=== PATIENT | female | born 1950 | race Two or more races ===

== ENCOUNTER 2019-07-18 14:27 | Outpatient (CLI) | payer MEDICARE, OTHER ==
--- NOTE | 2019-07-20 01:34 | XRAY Report ---
Reason: ACUTE L CALCANEAL PAIN SINCE 04/2019 Procedure Date: 07/18/2019 Accession Number: [id number] / [id number] Procedure: XR - Calcaneus LT CPT Code: Final Report FULL RESULT: EXAM: LEFT CALCANEOUS RADIOGRAPHY EXAM DATE: 07/18/2019 02:43 PM. CLINICAL HISTORY: ACUTE L CALCANEAL PAIN SINCE 04/2019. COMPARISON: None. TECHNIQUE: 2 views. FINDINGS: Bones and joints: Sclerosis at the medial facet of the subtalar joint with an accessory anterolateral facet. The posterior subtalar facet is intact. The calcaneus is otherwise normal. Hypertrophic bone changes at the medial midfoot in the region of the navicular. Soft Tissues: Normal. No soft tissue swelling. IMPRESSION: Accessory anterolateral facet at the subtalar joint, a possible pain generator. Hypertrophic bone changes at the medial midfoot in the region of the navicular. An oblique view of the foot may be useful for further evaluation. [facility]
== END 2019-07-18 14:28 | disposition home or self-care (01) ==
LOC: DI 14:27
PROVIDERS: ATTEND Podiatrist
DX: M89.372 Hypertrophy of bone, left ankle and foot (principal)

== ENCOUNTER 2019-07-21 10:14 | Outpatient (CLI) | payer MEDICARE, OTHER ==
--- NOTE | 2019-07-22 10:58 | XRAY Report ---
Reason: 1 VIEW OBL ONLY PER MD CONVERSATION 07.21.19 @ 1028 Procedure Date: 07/21/2019 Accession Number: [id number] / [id number] Procedure: XR - Foot 2 View LT CPT Code: Final Report FULL RESULT: EXAM: LEFT FOOT RADIOGRAPHY EXAM DATE: 07/21/2019 10:34 AM. CLINICAL HISTORY: Heel pain since April. COMPARISON: CALCANEUS LT 07/18/2019 2:38 PM. TECHNIQUE: 1 oblique view. 1 VIEW OBL ONLY PER MD CONVERSATION 07.21.19 @ 1028. FINDINGS: Bones: No definite fractures or bone lesions. Hypertrophic bone changes at medial midfoot not seen on this oblique view. Joints: Mild joint space narrowing at first MTP joint. No subluxation or dislocation evident on single view. Soft Tissues: No significant soft tissue swelling or radiopaque foreign body. IMPRESSION: No acute abnormality on single oblique view. [facility]
== END 2019-07-21 10:15 | disposition home or self-care (01) ==
LOC: DI 10:14
PROVIDERS: ATTEND Podiatrist
DX: M79.672 Pain in left foot (principal)

== ENCOUNTER 2024-01-24 08:00 | Outpatient (CLI) | payer MEDICARE, OTHER ==
[2024-01-24 17:26] LABS: INFLUENZA A- RESP PCR PANEL NOT DETECTED; INFLUENZA B - RESP PCR PANEL NOT DETECTED; RSV- RESP PCR PANEL NOT DETECTED
[2024-01-24 17:34] LABS: SARS-CoV-2 -RESP PCR PANEL DETECTED
== END 2024-01-24 23:59 | disposition home or self-care (01) ==
LOC: LAB 08:00
PROVIDERS: ATTEND Emergency Medicine
DX: U07.1 COVID-19 (principal)
CPT/HCPCS: 87637